=== PATIENT | female | born 1960 | race Caucasian/White ===

== ENCOUNTER → 2016-04-04 | Outpatient (CLI) | payer OTHER ==
--- NOTE | 2016-04-04 11:35 | DI ---
MRI CERVICAL SPINE W/O CN,04/04/2016 9:37 AM: Clinical History: Cervicalgia with recent fall. Previous Exam: March 11, 2016 Findings: Multiplanar MR images are obtained through the cervical spine without contrast. There is grade 1 retrolisthesis of C5 on C6 and C6 on C7. The cervical spinal cord descends normally with normal course and caliber however, there is some hete rogeneous signal within the spinal cord as it descends through the cervical spinal canal. The posterior fossa is unremarkable. The major vascular flow voids are unremarkable. There is no evidence of Chiari malformation. There is no cervical lymphadenopathy. Individual intervertebral disc spaces: C2/C3: There is disc desiccation and a central disc protrusion measuring 4 mm. This causes no signifi cant central canal nor neural foraminal narrowing. C3/4: There is some mild disc desiccation and a small 2 mm central disc protrusion with some mild fac et and ligamentum flavum hypertrophy causing no significant central canal nor neural foraminal narrow ing. C4/5: There is some mild disc desiccation and some uncovertebral joint osteophyte formation with some left-sided facet hypertrophy contributing to mild left neural foraminal narrowing. C5/6: There is grade 1 retrolisthesis of C5 on C6 with disc desiccation and facet and uncovertebral j oint osteophyte formation contributing to mild central canal stenosis with moderate to severe left an d mild to moderate right neuroforaminal narrowing and moderate central canal stenosis. C6/7: There is grade 1 retrolisthesis of C6 on C7 with uncovertebral joint osteophyte formation and a broad-based disc bulge contributing to moderate central canal stenosis and severe bilateral neural f oraminal narrowing C7/T1: There is mild disc desiccation without significant stenosis. Impression: C4/5: There is some mild disc desiccation and some uncovertebral joint osteophyte formation with some left-sided facet hypertrophy contributing to mild left neural foraminal narrowing. C5/6: There is grade 1 retrolisthesis of C5 on C6 with disc desiccation and facet and uncovertebral j oint osteophyte formation contributing to mild central canal stenosis with moderate to severe left an d mild to moderate right neuroforaminal narrowing and moderate central canal stenosis. C6/7: There is grade 1 retrolisthesis of C6 on C7 with uncovertebral joint osteophyte formation and a broad-based disc bulge contributing to moderate central canal stenosis and severe bilateral neural f oraminal narrowing C7/T1: There is mild disc desiccation without significant stenosis.
== END ==
LOC: MRI 09:33
PROVIDERS: ATTEND Nurse Practitioner Family
DX: M54.2 Cervicalgia (principal); M50.31 Other cervical disc degeneration, high cervical region; M50.121 Cervical disc disorder at C4-C5 level with radiculopathy
CPT/HCPCS: 72141

== ENCOUNTER 2016-11-05 10:12 | Emergency (ER) | payer OTHER ==
[2016-11-05 10:25] VITALS: RESP 16; TEMP 97.9
[2016-11-05] MEDS ORDERED: ONDANSETRON 4 MG/2 ML VIAL IVP ONE (10:39)
[2016-11-05] MEDS ORDERED: NORMAL SALINE 10 ML SYRINGE FLUSH IVP PRN (10:39)
[2016-11-05] MEDS ORDERED: fentaNYL Inj 100 MCG/2 ML VIAL IVP PRN (10:39)
--- NOTE | 2016-11-05 10:52 | PDOC ---
General Adult HPI - General Chief Complaint: General Medical Stated Complaint: CELLULITIS LEFT SIDE OF FACE Date Seen by Provider: 11/05/16 Time Seen by Provider: 10:35 Source: POSITIVE: Patient Exam Limitations: POSITIVE: No limitations Nurse's Notes Reviewed & Considered: Yes - History of Present Illness Initial Comment: This is a 56-year-old female who presents to the emergency department with history of increasing pain and swelling to the left side of her jaw for the last 1-2 days. She states that she initially noticed some tenderness in the left side of her jaw about 4 days ago, the swelling didn't become bad until last 1-2 days. No history of any dental pain or untreated cavities, no fevers chills or body aches. She has no trismus. She has a history of a postsurgical infection after an anterior cervical fusion a few months ago, but that has cleared up after 2 weeks of IV antibiotics. This infection is a completely different location. She had an appointment with her physician in clinic today, but told her to come to the emergency department for evaluation and treatment. Have you received a tetanus shot in the past 10 years?: Unknown - Patient Home Medications Home Medications: Home Medications Estrogens, Conjugated [Premarin] 0.625 mg PO DAILY 11/05/16 Lorazepam [Ativan] 0.5 mg PO BID PRN 11/05/16 Promethazine Supp [Phenergan Supp] 25 mg RECTAL Q6H PRN 11/05/16 Sertraline HCl 25 mg PO DAILY 11/05/16 traMADol HCl [Ultram] 50 mg PO Q6H PRN 11/05/16 - Patient Allergies Allergies/Adverse Reactions: Allergies Allergy/AdvReac Type Severity Reaction Status Date / Time calcium carbonate [From DHEA] Allergy SHORTNESS Verified 11/05/16 10:58 OF BREATH calcium phosphate,dibasic Allergy SHORTNESS Verified 11/05/16 10:58 [From DHEA] OF BREATH prasterone (DHEA) [From DHEA] Allergy SHORTNESS Verified 11/05/16 10:58 OF BREATH sumatriptan [From Imitrex] Allergy SHORTNESS Verified 11/05/16 10:58 OF BREATH sumatriptan succinate Allergy SHORTNESS Verified 11/05/16 10:58 [From Imitrex] OF BREATH Past Medical History - heen HEENT History: Denies History Cardiovascular History: Denies History Respiratory History: Pneumonia Gastrointestinal History: Denies History Genitourinary History: Denies History Endocrine History: Denies History Musculoskeletal History: Denies History Neurological History: Migraines Blood Disorders: Denies History Psychiatric History: Denies History History of Sexually Transmitted Diseases: No Female Reproductive History: Hysterectomy LMP: 1982 Obstetrical History: Denies History Cancer History: Denies History In Past Year Been Physically Harmed or Verbally Threatened: No History of MDRO: No History of Other Communicable Diseases: No Tobacco Use: Never Smoker Alcohol Use: None Substance Use Type: None Previous Surgical History: Yes Type / Date of Surgery: HYSTERECTOMY, R ARM PINNED, "NERVES MOVED IN BILATERAL FOREARMS" Anesthesia Reactions: No Malignant Hyperthermia: No Significant Family History: No pertinent family hx Past Medical History Reviewed: Reviewed - No Changes ROS - Limitations ROS Limitations: No Limitations Constitution: DENIES: Chills, Fever Cardiovascular: DENIES: Chest Pain, Heart Racing Neurological: DENIES: Headache Musculoskeletal: DENIES: Muscle Aches Skin: REPORTS: Excessive Bruising Lympathic: DENIES: Swollen Glands General Adult Exam - General Appearance General Appearance: POSITIVE: Alert, Cooperative, No Acute Distress - HEENT HEENT: POSITIVE: PERRL, EOMI, Other (Patient has a large area of swelling along the left mandible that is quite tender to palpation in looks more like a subcutaneous hematoma and bruising as opposed to cellulitis. The patient states no history of any trauma.). NEGATIVE: Scleral Icterus, Dental Caries - Neck Neck: POSITIVE: Normal Inspection. NEGATIVE: Lymphadenopathy - Respiratory Respiratory: POSITIVE: No Respiratory Distress, Breath Sounds Normal. NEGATIVE : Wheezes, Rales, Rhonchi - Cardiovascular Cardiovascular: POSITIVE: Regular Rate & Rhythm, No Murmur, No Gallop - Skin Skin: POSITIVE: Warm, Dry, No Rash - Neurological / Psychological Neurological: POSITIVE: Affect Apporpriate, Oriented X3 General Adult Progress - Results Reviewed by me Xrays/CTs/US Reviewed by me: Yes Discussed with Radiologist: Yes Radiology Findings: Cellulitis of the left mandible. Lab Results Reviewed: Yes Lab Results:: Laboratory Results 11/05/16 11/05/16 Range/Units 12:16 12:34 WBC 8.67 (4.8-10.8) 10^3/uL RBC 4.06 L (4.20-5.40) 10^6/uL Hgb 12.8 (12.0-16.0) g/dL Hct 37.7 (37.0-47.0) % MCV 92.9 (81-99) FL MCH 31.5 H (27-31) PG MCHC 34.0 (33-37) g/dL RDW Std Deviation 43.4 (39-50) fL RDW Coeff of Zach 13.2 (11.5-14.5) % Plt Count 319 (140-350) 10*3/uL MPV 9.4 (7.4-12.2) FL Immature Gran % (Auto) 0.2 (0-5) % Neut % (Auto) 65.8 (50-80) % Lymph % (Auto) 25.0 (10-50) % Power % (Auto) 7.6 (5-15) % Eos % (Auto) 1.2 (0-8) % Baso % (Auto) 0.2 (0-1) % Immature Gran # (Auto) 0.02 10*3/UL Neut # (Auto) 5.70 10*3/UL Lymph # (Auto) 2.17 10*3/uL Power # (Auto) 0.66 (0.3-0.8) 10*3/UL Eos # (Auto) 0.10 10*3/UL Baso # (Auto) 0.02 10*3/UL WBC Morphology Comment Normal morphology (NORM) Plt Morphology Comment Normal morphology (NORM) RBC Morph Comment Normal morphology (NORM) PT 9.9 (9.7-11.4) secs INR 0.93 (0.00-5.90) N/A APTT 26.0 (22.6-36.2) SECS Sodium 137 (135-145) meq/L Potassium 3.6 L (3.8-5.2) meq/L Chloride 104 (98-112) meq/L Carbon Dioxide 23 (23-33) meq/L Anion Gap 10 (5-20) BUN 12 (7-22) mg/dL Creatinine 0.8 (0.50-1.20) mg/dL Estimated GFR > 60 (>60 ml/min/1.73m(2)) BUN/Creatinine Ratio 15.00 (6-20) Glucose 87 (78-110) mg/dL Calculated Osmolality 282.0 (267-292) mOsm/kg Calcium 9.1 (8.7-10.7) mg/dL - Patient's Progress Pain Medication Addressed: POSITIVE: Yes Re-Examine Time: 16:02 Re-Examine Comment: Patient has been stable since initial evaluation, labs and CTs reviewed and discussed. Rocephin IV will be given. Re-Examine Time:: 17:18 Re-Examine Comment: Rocephin is finished, patient was ready for discharge. Status: POSITIVE: Improved MDM / ED Course: Emergency room course: After initial evaluation, an IV was started. She is a very difficult stick, we were finally able to get an IV in her upper chest. Blood was drawn, a maxillo-facial CT was obtained, which showed cellulitis but no distinct abscess. When all the results were reviewed, they're discussed with the patient. She did have a small amount of purulent drainage from underneath the mandible. She will be given a dose of Rocephin 2 g IV, the IV will be kept in place, she will return in 24 hours for no dose of Rocephin and a wound check. Antibiotics Given: Yes - Consult Counseled: POSITIVE: Patient, RE: Lab Results, RE: Radiology Results, RE: DX, RE : Need for F/U Patient Care Time - Estimated PCT Patient Care Time (In Minutes): 25 Vital Signs - Recent Vital Signs Vital Signs: Vital Signs (Last 8 hours) Temp Pulse Resp BP Pulse Ox 11/05/16 10:18 97.9 F 102 H 16 136/95 95 Discharge Clinical Impression: Cellulitis and abscess of face Discharge Disposition: Discharged to Home Condition: Good Patient Instructions Given at Discharge: Cellulitis (ED) Follow Up With: NONE,NONE [Primary Care Provider] -
[2016-11-05] MEDS: Sodium Chloride 0.9% 1,000 ML PRIMARY IV ONE ×2 (12:20→12:33)
[2016-11-05 12:25] LABS: BASOPHILS # (AUTO) 0.02 10*3/UL; BASOPHILS % (AUTO) 0.2 % (0-1); EOSINOPHILS % (AUTO) 1.2 % (0-8); HEMATOCRIT 37.7 % (37.0-47.0); HEMOGLOBIN 12.8 g/dL (12.0-16.0); LYMPHOCYTES # (AUTO) 2.17 10*3/uL; MEAN CORPUSCULAR HEMOGLOBIN 31.5 PG (27-31); MEAN CORPUSCULAR VOLUME 92.9 FL (81-99); MEAN PLATELET VOLUME 9.4 FL (7.4-12.2); MONOCYTES # (AUTO) 0.66 10*3/UL (0.3-0.8); MONOCYTES % (AUTO) 7.6 % (5-15); NEUTROPHILS % (AUTO) 65.8 % (50-80); RED BLOOD COUNT 4.06 10^6/uL (4.20-5.40)
[2016-11-05 12:31] LABS: BLOOD UREA NITROGEN 12 mg/dL (7-22); CALCIUM 9.1 mg/dL (8.7-10.7); EST GLOMERULAR FILTRATION > 60 (>60 ml/min/1.73m(2))
[2016-11-05 12:35] LABS: PLATELET MORPHOLOGY COMMENT NORMAL MORPHOLOGY (NORM); RBC MORPHOLOGY COMMENT NORMAL MORPHOLOGY (NORM); WBC MORPHOLOGY COMMENT NORMAL MORPHOLOGY (NORM)
--- NOTE | 2016-11-05 13:57 | DI ---
CT MAXFACIAL W/CN FACE SINUS,11/05/2016 10:39 AM: Clinical History: Left mandibular swelling. Previous Exam: None at this facility. Findings: Multiple helically acquired CT images are obtained through the neck following intravenous administrat ion of 70 cc of Isovue 300, and demonstrate normal brain. The nondalton of Call is unremarkable. Intraorbital structures and paranasal sinuses are unremarkable. The mastoid air cells are unremarkable. There is soft tissue swelling overlying the left mandibular region with no evidence of fluid collecti on. There are a few small lymph nodes noted. The parapharyngeal fat is normal and symmetric. The thyroid is unremarkable except for a subcentimeter hypodensity within the right thyroid lobe whic h is too small to characterize. Lung apices are clear. The patient is status post anterior screw and plate fixation of C5-C7. There is also interbody fusion at these levels. Mild facet arthropathy is noted. The intraorbital structures are unremarkable. Impression: Soft tissue swelling involving the subcutaneous fat in the left mandibular region without fluid colle ction. This is most consistent with cellulitis.
[2016-11-05] MEDS ORDERED: fentaNYL Inj 100 MCG/2 ML VIAL IVP ONE (14:15)
[2016-11-05] MEDS ORDERED: cefTRIAXone Inj 2 GM in Sodium Chloride 0.9% 100 ML IV ONE (15:57)
[2016-11-05] MEDS ORDERED: KETOROLAC 15 MG/1 ML VIAL IVP ONE (15:58)
[2016-11-06] MEDS ORDERED: Sodium Chloride 0.9% 1,000 ML ONE (06:09)
== END 2016-11-05 17:21 | disposition home or self-care (01) ==
LOC: ER 10:12
DX: L03.211 Cellulitis of face (principal); L02.01 Cutaneous abscess of face; R68.84 Jaw pain
CPT/HCPCS: 70487; 80048; 85025; 85610; 85730; 87070; 87075; 87205; 96365; 96375; 96376; 99283; 99284; J0696; J1885; J2405; J3010; J7030; J7050

== ENCOUNTER 2016-11-06 10:24 | Emergency (ER) | payer OTHER ==
[2016-11-06 10:43] VITALS: RESP 16
[2016-11-06] MEDS ORDERED: ONDANSETRON 4 MG/2 ML VIAL IVP ONE (11:10)
[2016-11-06] MEDS ORDERED: KETOROLAC 15 MG/1 ML VIAL IVP ONE (11:10)
--- NOTE | 2016-11-06 11:17 | PDOC ---
Skin Rash/Insect/Abscess HPI - General Chief Complaint: Integumentary Stated Complaint: RECHECK FACIAL CELLULITIS Date Seen by Provider: 11/06/16 Time Seen by Provider: 10:50 Source: POSITIVE: Patient Exam Limitations: POSITIVE: No limitations Nurse's Notes Reviewed & Considered: Yes - History of Present Illness Initial Comments: Patient returns today for reevaluation for cellulitis of the face, specifically left mandible. Patient has increased swelling and increased drainage from a large area of swelling on the left mandible. This extends down into her neck. Drainage is serosanguineous in nature. She denies any fevers chills or sweats, nausea vomiting or diarrhea, chest pain, no shortness of breath, no abdominal pain, no hematuria dysuria. In May patient underwent a anterior approach for cervical fusion. In July she developed an infection in the soft tissues of her left anterior lateral neck. This infection required surgical drainage and antibiotics that were finished in mid September. This past week she developed left jaw pain. She went to see her dentist who informed her this was not a dental infection. Yesterday she went to the [facility] acted to the emergency department. CT scan was performed yesterday which showed swelling of the left mandible but no focal abscess present. She is return today for reevaluation because of the increased swelling and drainage. Have you received a tetanus shot in the past 10 years?: Yes Body Location Affected: REPORTS: Face (Left mandible) Timing: REPORTS: Gradual, Getting Worse Duration: >24 hours Severity: Severe Quality: REPORTS: "Pain" Identified Causes: REPORTS: No When Exposed: REPORTS: Just Prior to Sx Onset Similar Symptoms Previously: Yes Recent Care Received: REPORTS: Recently Seen, Treated by MD Any Prior Injuries Related to Current Complaint?: Yes - Patient Home Medications Home Medications: Home Medications Estrogens, Conjugated [Premarin] 0.625 mg PO DAILY 11/05/16 Lorazepam [Ativan] 0.5 mg PO BID PRN 11/05/16 Promethazine Supp [Phenergan Supp] 25 mg RECTAL Q6H PRN 11/05/16 Sertraline HCl 25 mg PO DAILY 11/05/16 traMADol HCl [Ultram] 50 mg PO Q6H PRN 11/05/16 - Patient Allergies Allergies/Adverse Reactions: Allergies Allergy/AdvReac Type Severity Reaction Status Date / Time sumatriptan succinate Allergy Severe SHORTNESS Verified 11/06/16 10:32 [From Imitrex] OF BREATH calcium carbonate [From DHEA] Allergy SHORTNESS Verified 11/06/16 10:32 OF BREATH calcium phosphate,dibasic Allergy SHORTNESS Verified 11/06/16 10:32 [From DHEA] OF BREATH prasterone (DHEA) [From DHEA] Allergy SHORTNESS Verified 11/06/16 10:32 OF BREATH sumatriptan [From Imitrex] Allergy SHORTNESS Verified 11/06/16 10:32 OF BREATH Past Medical History - heen HEENT History: Denies History Cardiovascular History: Denies History Respiratory History: Pneumonia Gastrointestinal History: Denies History Genitourinary History: Denies History Endocrine History: Denies History Musculoskeletal History: Denies History Neurological History: Migraines Blood Disorders: Denies History Psychiatric History: Denies History History of Sexually Transmitted Diseases: No Cancer History: Denies History In Past Year Been Physically Harmed or Verbally Threatened: No History of MDRO: No History of Other Communicable Diseases: No Tobacco Use: Never Smoker Alcohol Use: None Substance Use Type: None Previous Surgical History: Yes Type / Date of Surgery: HYSTERECTOMY, R ARM PINNED, "NERVES MOVED IN BILATERAL FOREARMS" Anesthesia Reactions: No Malignant Hyperthermia: No Significant Family History: No pertinent family hx Skin Rash/Insect/Abscess Exam - General Appearance General Appearance: REPORTS: Alert, Cooperative, No Acute Distress - Skin Skin: REPORTS: Warm, Dry, Abscess, Tender Indurated Area, Fluctuant Skin Location: REPORTS: Face (Left mandible) Skin Symptoms: REPORTS: Warmth, Tenderness, Swelling, Lymphangitis - Extremities Extremity: Non-Tender: (All Extremities), Normal ROM: (All Extremities), Normal Inspection: (All Extremities), Pelvis Stable: (All Extremities) - HEENT HEENT: POSITIVE: Eyes Inspection Nml, Ears Inspection Nml, Nose Inspection Nml, Oral/Dental Inspect. Nml, Pharynx Inspect. Nml, PERRL, EOMI - Neck Neck: REPORTS: Trachea Midline, Lymphadenopathy, Other (Swelling of the left mandible extending into the left anterior lateral neck.) - Respiratory Respiratory: REPORTS: No Respiratory Distress, Breath Sounds Normal - Cardiovascular Cardiovascular: REPORTS: Regular Rate and Rhythm, Heart Sounds Normal - Abdomen Abdomen: Soft: (All Quadrants), Normal Bowel Sounds: (All Quadrants), Denies Tenderness: (All Quadrants), No Splenomegaly: (All Quadrants), No Hepatomegaly: (All Quadrants), No Guarding: (All Quadrants), No Rebound: (All Quadrants), No Palpable Pulse: (All Quadrants), No Palpabale Mass: (All Quadrants), No Distention: (All Quadrants), No Rigidity: (All Quadrants) - Neurological / Psychological Neurological: REPORTS: Oriented X3, Motor Normal, Sensation Normal Procedures - Laceration/Wound Repair Did patient have a laceration repair: No Skin Rash/Abscess Progress - Results Reviewed by me Xrays/CTs/US Reviewed by me: Yes Discussed with Radiologist: Yes Labs Normal Except for:: Abnormal Lab Results: Entire Visit 11/06/16 Range/Units 11:25 RBC 3.99 L (4.20-5.40) 10^6/uL MCH 31.8 H (27-31) PG Potassium 3.7 L (3.8-5.2) meq/L Glucose 65 L (78-110) mg/dL C-Reactive Protein 2.2 H (0.0-0.9) mg/dL Albumin/Globulin Ratio 1.20 L (1.3-2.0) mg/g - Patient's Progress Pain Medication Addressed: POSITIVE: Yes Re-Examine Time:: 14:39 Status: POSITIVE: Improved MDM / ED Course: Patient was evaluated, blood drawn and sent to the lab for studies, blood cultures were obtained, radiographic examinations were obtained. Findings: CBC shows white count hemoglobin and hematocrit and platelets are normal. Comprehensive metabolic panel is unremarkable. C-reactive protein is elevated at 2.2. CT scan soft tissues of her neck shows induration and swelling of the left side soft tissues over the mandible with no focal abscess present there is a small amount of air present. Assessment: Worsening cellulitis. Plan: Transfer to for ear nose and throat consultation. I was able to contact Dr. Emerson was graciously accepted the patient for ENT evaluation. I also discussed this patient with Dr. Balderrama, the ER doctor, who graciously accepted the patient for further ER evaluation. - Consult Consult (If Yes, Name of Consulting MD & Time Called): Yes (Sathish Santana 13:45) Consulting MD will see pt:: POSITIVE: Recommended Transfer Counseled: POSITIVE: Patient, RE: Lab Results, RE: Radiology Results, RE: DX, RE : Need for F/U Patient Care Time - Estimated PCT Patient Care Time (In Minutes): 60 Vital Signs - Recent Vital Signs Vital Signs: Vital Signs (Last 8 hours) Temp Pulse Resp BP Pulse Ox 11/06/16 10:30 98.1 F 80 16 135/98 96 - VS Reviewed Vital Signs Reviewed: Yes Discharge Clinical Impression: Cellulitis, Cellulitis and abscess of face Discharge Disposition: Transferred to Tertiary Care Facility Condition: Stable Date Decision to Transfer to Another Facility: 11/06/16 Time Decision to Transfer to Another Facility: 14:43
[2016-11-06 11:33] LABS: BASOPHILS # (AUTO) 0.04 10*3/UL; BASOPHILS % (AUTO) 0.5 % (0-1); EOSINOPHILS % (AUTO) 1.3 % (0-8); HEMATOCRIT 37.4 % (37.0-47.0); HEMOGLOBIN 12.7 g/dL (12.0-16.0); LYMPHOCYTES # (AUTO) 1.82 10*3/uL; MEAN CORPUSCULAR HEMOGLOBIN 31.8 PG (27-31); MEAN CORPUSCULAR VOLUME 93.7 FL (81-99); MEAN PLATELET VOLUME 9.4 FL (7.4-12.2); MONOCYTES # (AUTO) 0.61 10*3/UL (0.3-0.8); MONOCYTES % (AUTO) 8.1 % (5-15); NEUTROPHILS # (AUTO) 4.98 10*3/UL; NEUTROPHILS % (AUTO) 65.9 % (50-80); RED BLOOD COUNT 3.99 10^6/uL (4.20-5.40)
[2016-11-06 11:35] LABS: PLATELET MORPHOLOGY COMMENT NORMAL MORPHOLOGY (NORM); RBC MORPHOLOGY COMMENT NORMAL MORPHOLOGY (NORM); WBC MORPHOLOGY COMMENT NORMAL MORPHOLOGY (NORM)
[2016-11-06 11:54] LABS: BLOOD UREA NITROGEN 10 mg/dL (7-22); BUN/CREATININE RATIO 14.28 (6-20); C-REACTIVE PROTEIN 2.2 mg/dL (0.0-0.9); CALCIUM 9.3 mg/dL (8.7-10.7); EST GLOMERULAR FILTRATION > 60 (>60 ml/min/1.73m(2))
--- NOTE | 2016-11-06 13:11 | DI ---
CT SOFT TISSUE NECK W/CONTRAST,11/06/2016 11:10 AM: Clinical History: Left facial swelling. Previous Exam: November 05, 2016 Findings: Multiple helically acquired CT images are obtained through the neck following the intravenous adminis tration of contrast, and demonstrate some stable swelling of the left subcutaneous fat. There is no o rganized fluid collection. There is some subcutaneous air noted. There is some edema noted. There is still a focus of air. The skeletal structures are unremarkable. The parapharyngeal fat appears normal and symmetric. The major vascular structures are unremarkable. The lung apices are clear. Postsurgical changes are s een of the spine consistent with anterior screw and plate fixation of C5-C7. Impression: 1. Continued edema and swelling of the left face without evidence of underlying abscess at this time.
[2016-11-06] MEDS ORDERED: Piperacillin/Tazobactam Inj 3.375 GM in Sodium Chloride 0.9% 100 ML IV ONE (13:18)
[2016-11-06] MEDS ORDERED: MORPHINE SULFATE 4 MG/1 ML IVP ONE (13:37)
[2016-11-06 15:09] VITALS: TEMP 97.8
[2016-11-07] MEDS ORDERED: TOBRAMYCIN 0.3% - 5 ML EYE DROPS EACH EYE ONE (07:53)
[2016-11-07] MEDS ORDERED: Tetracaine Ophth Soln 0.5% 40 DRP/4 ML BOTTLE RIGHT EYE ONE (07:53)
[2016-11-07] MEDS ORDERED: FLUORESCEIN 1 MG EYE STRIP RIGHT EYE ONE (07:53)
== END 2016-11-06 15:35 | disposition short-term general hospital (02) ==
LOC: ER 10:24
DX: L03.211 Cellulitis of face (principal); L02.01 Cutaneous abscess of face
CPT/HCPCS: 36415; 70491; 80053; 83605; 85025; 86140; 87040; 96365; 96375; 99283 ×2; J1885; J2270; J2405; J2543; J7050